=== PATIENT | female | born 1950 | race Caucasian/White ===

== ENCOUNTER 2018-08-27 14:45 | Emergency (ER) | payer MEDICARE, OTHER ==
[2018-08-27] MEDS ORDERED: Fluorescein Opthalmic Strip ONE ×2 (14:53→15:03)
[2018-08-27] MEDS ORDERED: Proparacaine 0.5% Opth 15 ML BOT ONE (14:53)
== END 2018-08-27 15:14 | disposition home or self-care (01) ==
LOC: SCSER 14:45
DX: T15.11XA Foreign body in conjunctival sac, right eye, initial encounter (principal); I10 Essential (primary) hypertension
CPT/HCPCS: 99283